=== PATIENT | female | born 1945 ===

== ENCOUNTER 2021-07-28 17:27 | Inpatient (IN) | payer MEDICARE, OTHER ==
[~2021-07-28] VITALS: Ht 182.9 cm; Wt 90.8 kg
[2021-07-28] MEDS ORDERED: AMLO5 PO (18:25)
[2021-07-28] MEDS ORDERED: CYCL10 PO (18:26)
[2021-07-28] MEDS ORDERED: Vitamin D1000 UNI1 PO (18:26)
[2021-07-28] MEDS ORDERED: LISI20 PO (18:27)
[2021-07-28] MEDS ORDERED: KETO15TC TOP (18:27)
[2021-07-28] MEDS ORDERED: FERSU300 PO (18:27)
[2021-07-28] MEDS ORDERED: PRAVASTATIN SOD40 MG PO (18:28)
[2021-07-28] MEDS ORDERED: Hair, Skin & N1 EACH PO (18:28)
[2021-07-28 20:33] LABS: Creatine Kinase MB Index 0.7 (0.0-4.0)
--- NOTE | 2021-07-29 05:00 | NUR ---
CATHETER PT IN LARGE AMOUNT OF PAIN DUE TO HIP FX. DIFFICULT TO ROLL PATIENT. CALLED [facility]. PER ER, AUGUSTIN CATH PLACED STERILELY @ 1205 ON 07/28/21. AT THIS TIME, FOR PT PAIN/REQUEST, NOT REPLACING AUGUSTIN WITH OUR OWN. UA TO BE SENT VIA [facility].
[2021-07-29 05:11] LABS: BASOPHILS ABSOLUTE AUTO 0.03 K/mm3 (0.00-0.23); BASOPHILS PERCENT AUTO 0 % (0-2); EOSINOPHILS ABSOLUTE AUTO 0.06 K/mm3 (0.00-0.68); EOSINOPHILS PERCENT AUTO 1 % (0-6); Hematocrit 41.4 % (33.0-51.0); Hemoglobin 14.1 g/dL (11.5-16.0); IMMATURE GRAN ABSOLUTE AUTO 0.07 K/mm3 (0.00-0.10); IMMATURE GRAN PERCENT AUTO 1 % (0-1); LYMPHOCYTES ABSOLUTE AUTO 1.62 K/mm3 (0.84-5.20); LYMPHOCYTES PERCENT AUTO 12 % (21-46); MONOCYTES PERCENT AUTO 7 % (4-13); Mean Corpuscular HGB Conc 34.1 g/dL (31.5-36.5); Mean Corpuscular Volume 88 fL (80-100); NEUTROPHILS ABSOLUTE AUTO 10.55 K/mm3 (1.96-9.15); NEUTROPHILS PERCENT AUTO 80 % (41-73); RDW Coefficient Variation 12.7 % (11.7-14.2); RDW Standard Deviation 41.3 fL (35.1-46.3); White Blood Cell Count 13.23 K/mm3 (4.00-11.30)
[2021-07-29 05:18] LABS: Mean Platelet Volume 11.5 fL (9.1-12.4)
[2021-07-29 05:35] LABS: Bun/Creatinine Ratio 25.7 (12.0-20.0); Calcium, Blood 7.9 mg/dL (8.5-10.1); Creatinine, Blood 0.93 mg/dL (0.40-1.00); Globulin, Blood 3.1 g/dL (2.2-4.0); Potassium, Blood 3.7 mmol/L (3.5-5.5); Total Protein, Blood 6.1 g/dL (6.4-8.2)
[2021-07-29 05:41] LABS: Source, Urine Foley catheter
--- NOTE | 2021-07-29 06:06 | NUR ---
END OF SHIFTY SUMMARY: OVERNOC WENT WELL, NO ACUTE ISSUES, VSS, 2L NC SATS (90-95%), ONLY PAIN IS WITH ACTIVITY (ADLs ETC..), LLE TURNED INWARDS AND VERY PAINFUL WITH TURNS. TROP IS TRENDING UP-- MD AWARE, NO INTERVENTIONS AT THIS TIME, AUGUSTIN CATH WITH ~300 OUT ALL SHIFT. STILL CONFUSED, ALERT TO SELF ONLY WILL CONTINUE TO MONITOR
[2021-07-29 06:39] LABS: Bilirubin, Urine Neg (Neg); Blood, Urine 5+ (Neg); Glucose Qualitative, Urine Neg (Neg); Ketones, Urine 2+ (Neg); Leukocyte Esterase, Urine 1+ (Neg); Nitrite, Urine Neg (Neg); Protein, Urine 3+ (Neg); Specific Gravity, Urine 1.025 (1.003-1.022); Urobilinogen, Urine NORM (Normal)
[2021-07-29 06:52] LABS: Platelet Count 128 K/mm3 (150-400)
[2021-07-29 07:00] LABS: Appearance, Urine Clear (Clear); Color, Urine Yellow (P-Yellow)
[2021-07-29 07:03] LABS: Red Blood Cells, Urine 50-100 /hpf (0-2); Squamous Epithelial Cells Rare /hpf (Few)
[2021-07-29 07:04] LABS: Bacteria Many /hpf; Mucus Heavy (0-Heavy)
[2021-07-29 07:05] LABS: Hyaline Casts 0-2 /lpf (0-2)
[2021-07-29] MEDS ORDERED: MELATONIN5 M1 PO (08:56)
[2021-07-29] MEDS ORDERED: APAP500 MG PO (08:56)
[2021-07-29] MEDS ORDERED: [UNRECOGNIZED DRUG - OTHER] TOP (08:58)
--- NOTE | 2021-07-29 09:42 | NUR ---
Pt agitated and combative towards staff- multiple attempts to punch, pinch, and bite staff during med administration. Attempted to utilize de-escalating techniques and offer pain management and vital signs, pt responded "Get away from me you weird people and stop touching me." notified that AM meds were not administered. Will continue to monitor.
--- NOTE | 2021-07-29 09:52 | NUR ---
Update: Attempted ECHO- pt agitated and combative, unable to complete at this time. Cardiology at bedside aware, order cancelled.
--- NOTE | 2021-07-29 11:48 | NUR ---
Case Conference Note Reviewed chart and attempted to see Pt. Pt currently receiving care from staff and will attempt to F/U at a later time. Called and spoke with Pt's friend Alysia. Alysia reports at baseline Pt is independent with her ADLs and has a caregiver come in once a week. Alysia reports that she comes to Pt's home daily and checks on her. Alysia reports over the last 6 months Pt has become more confused and forgetul. She reports Pt is [employer] and has refused to get hearing aides. Pt does better with comunicating if Pt has her glasses on to read lips. She does report Pt becomes more agitated and combative when attempts of restraining her occur. Alysia reports Pt does not have any family, except a sister in law who lives in [place] but Pt does stay in routine communication. Alysia reports Pt's shunt has not been checked since having it placed. No other concerns reported at this time. Palliative Care will remain available.
--- NOTE | 2021-07-29 17:13 | NUR ---
Update: notified of elevated BP, Clonidine patch order d/t pt refusing PO meds at this time. Pt febrile, Rvce=082.5F- PRN Tylenol offered, pt refused. Cooling measures utilized, current temp =100.1F. CBC, BC, and abx ordered. Will continue to monitor.
[2021-07-29 18:07] LABS: Hematocrit 43.9 % (33.0-51.0); Hemoglobin 14.2 g/dL (11.5-16.0); Mean Corpuscular HGB 29.6 pg (26.0-34.0); Mean Corpuscular HGB Conc 32.3 g/dL (31.5-36.5); Mean Corpuscular Volume 92 fL (80-100); Mean Platelet Volume 10.7 fL (9.1-12.4); Platelet Count 158 K/mm3 (150-400); RDW Coefficient Variation 12.8 % (11.7-14.2); RDW Standard Deviation 43.1 fL (35.1-46.3); Red Blood Cell Count 4.79 M/mm3 (3.80-5.20); White Blood Cell Count 12.95 K/mm3 (4.00-11.30)
--- NOTE | 2021-07-29 18:33 | NUR ---
Shift Summary: Pt remains A&Ox1- agitated/combative most of shift and refusing care. BP trending up, AM BP meds were refused by patient, Clonidine patch applied to SANJIV. Yntc=077.5- pt refused PRN Tylenol, cooling measures utilized with adequate control of body temp. C/o L hip pain- Fentanyl x2, adequate control of pain per pt behavior. Ativan x1 d/t pt agitation prior to CT scan. FC that was POA remains in place- per infection prevention, FC does not need to be exchanged as it was placed in a sterile setting at previous hospital. Continues to have low UO. No BM. Tolerating current diet- will need to be NPO at 00:00 for tentative L hip repair tomorrow at 11:30a. Frequent rounds to ensure pt safety. Pt repositioned q2hrs and pressure points offloaded to prevent pressure ulcers. Pt in no apparent distress at this time. Will continue to monitor until transfer of care to oncoming RN.
--- NOTE | 2021-07-30 03:36 | NUR ---
PT'S TEMP IS CURRENTLY 99.8 F TEMPORAL. PT SKIN IS HOT TO TOUCH. THIS RN ASKS PT IF SHE NEEDS SOMETHING FOR PAIN, PT IS AGREEABLE TO HAVE SOME TYLENOL WHEN SHE IS ABLE, REFUSES NORCO, STATES PAIN IS TOLERABLE. PT IS CONFUSED, THINKS SHE HAS BEEN TO A FRIEND'S HOUSE, THIS RN REORIENTS PT, PT VERBALIZES UNDERSTANDING. ASKS THIS RN HOW TO TELL WHAT IS REAL AND WHAT IS NOT. THIS RN EXPLAINS CURRENT SITUATION AND REORIENTS PT TO UNIT AND THIS RN. PT INITIALLY AGITATED BUT RESPONDS POSITIVELY TO THIS RN TAKING HER HAND, PT ADJUSTED ON PILLOWS FOR COMFORT. COUNTRY MUSIC PUT ON PER PT REQUEST. PT ASKS ABOUT BREAKFAST. THIS RN EXPLAINS NPO STATUS D/T POSSIBLE SX TODAY. PT NODS HER HEAD AND VERBALIZES UNDERSTANDING.
[2021-07-30 04:39] LABS: BASOPHILS ABSOLUTE AUTO 0.04 K/mm3 (0.00-0.23); BASOPHILS PERCENT AUTO 0 % (0-2); EOSINOPHILS ABSOLUTE AUTO 0.17 K/mm3 (0.00-0.68); EOSINOPHILS PERCENT AUTO 2 % (0-6); Hematocrit 41.3 % (33.0-51.0); Hemoglobin 13.7 g/dL (11.5-16.0); IMMATURE GRAN ABSOLUTE AUTO 0.04 K/mm3 (0.00-0.10); IMMATURE GRAN PERCENT AUTO 0 % (0-1); LYMPHOCYTES ABSOLUTE AUTO 1.48 K/mm3 (0.84-5.20); LYMPHOCYTES PERCENT AUTO 15 % (21-46); MONOCYTES ABSOLUTE AUTO 0.63 K/mm3 (0.16-1.47); MONOCYTES PERCENT AUTO 6 % (4-13); Mean Corpuscular HGB 29.7 pg (26.0-34.0); Mean Corpuscular HGB Conc 33.2 g/dL (31.5-36.5); Mean Corpuscular Volume 90 fL (80-100); NEUTROPHILS ABSOLUTE AUTO 7.42 K/mm3 (1.96-9.15); NEUTROPHILS PERCENT AUTO 76 % (41-73); Platelet Count 150 K/mm3 (150-400); RDW Coefficient Variation 12.5 % (11.7-14.2); RDW Standard Deviation 41.2 fL (35.1-46.3); Red Blood Cell Count 4.61 M/mm3 (3.80-5.20); White Blood Cell Count 9.78 K/mm3 (4.00-11.30)
[2021-07-30 05:06] LABS: Alanine Aminotransfer (ALT/SGP 43 U/L (12-78); Albumin, Blood 2.9 g/dL (3.4-5.0); Albumin/Globulin Ratio 0.9 (0.8-1.8); Alk Phos 107 U/L (50-136); Anion Gap 8 mmol/L (6-16); Aspartate Aminotrans (AST/SGOT 49 U/L (12-37); Blood Urea Nitrogen 23 mg/dL (8-24); Bun/Creatinine Ratio 25.8 (12.0-20.0); CO2, Blood 23 mmol/L (21-32); Calcium, Blood 8.1 mg/dL (8.5-10.1); Chloride, Blood 110 mmol/L (98-108); Creatinine, Blood 0.89 mg/dL (0.40-1.00); Globulin, Blood 3.2 g/dL (2.2-4.0); Glomerular Filtration Rate >60 (60-); Glucose, Blood 126 mg/dL (70-99); Potassium, Blood 3.7 mmol/L (3.5-5.5); Sodium, Blood 141 mmol/L (136-145); Total Protein, Blood 6.1 g/dL (6.4-8.2)
--- NOTE | 2021-07-30 07:30 | NUR ---
SHIFT SUMMARY PT CONFUSED, ORIENTED TO SELF, DISTRUSTFUL. PT IRRITABLE ABOUT BEING IN HOSPITAL, WANTING TO LEAVE. PT RESTED LATER INTO THE NIGHT AND HTN IMPROVED BRIEFLY. PT LESS IRRITABLE AFTER SOME REST, COOPERATIVE WHEN TAKEN OUT OF RESTRAINTS, COULD NOT CONTRACT FOR SAFETY, PLACED BACK INTO RESTRAINTS AND COOPERATIVE WITH REPLACEMENT. PT CALM AND CHEERFUL THIS AM, AGREEABLE TO MAINTAIN SAFETY AND AVOID PULLING ON LINES, TUBES. HR SENSITIVE TO LABETALOL 10 MG IV, CECELIA VISIBLE DOWN TO 58 BPM FROM HIGH 80'S.
--- NOTE | 2021-07-30 09:43 | NUR ---
CATH TO GRAVITY CLEAR AMADOR URINE
--- NOTE | 2021-07-30 10:00 | NUR ---
Pt resting in bed upon arrival. Day surgery arrives to take Pt back for surgery. Pt appears calm and no S/S of distress at this time. Spoke with Primary RN Briseida and discussed case. Pt appears to be doing better today and is no longer in restraints. Called and spoke with Pt's friend Alysia. Provided update and answered questions. Deferred question related to CT results for hospitalist to answer. Palliative Care will remain available.
--- NOTE | 2021-07-30 12:25 | NUR ---
07/30/21 1225 Sumi Little PATIENT HAD AUGUSTIN IN PLACE WHEN ENTERING OR. DRAINING YELLOW URINE.
--- NOTE | 2021-07-30 14:38 | NUR ---
Shift note: Assumed care [id number], pt was brought to surgery 929 and then transferred from PACU to surgical floor after surgery, report given to Sandy. Pt was A&Ox3 this AM, disoriented to situation. Pt was calm and cooperative this AM prior to surgery. Pt had left hip repair completed by Dr. Roth. VSS on RA prior to surgery.
--- NOTE | 2021-07-30 15:40 | NUR ---
SHIFT SUMMARY: POD 0 LEFT CHANEL HIP PATIENT CAME FROM PACU TODAY 07/30/21 AT 1430. PATIENT IS SLEEPY BUT AROUSABLE WITH TOUCH. PATIENT DENIES PAIN AT THIS TIME. LEFT HIP HAS ONE AQUACEL THAT IS C/D/I. PATIENT IS FULL WEIGHT BEARING STATUS. AUGUSTIN IS PATENT AND DRAINING PER GRAVITY. PRIOR TO SURGERY SHE WAS ALERT AND ORIENTED X3-4. VS ARE WNL AND IS ON 2L NC. IV FLUIDS ARE RUNNING AT THIS TIME. BED ALARM ON. CALL LIGHT WITHIN REACH. THE PLAN IS TO POSSIBLY GO TO SNF AFTER WORKING WITH PT/OT TOMORROW WELL TO GET PAIN MANAGED.
--- NOTE | 2021-07-31 07:22 | NUR ---
ECHO SLEPT MOST OF THE NIGHT. SHE REMAINED FREE OF RESTRAINTS, WAS COOPERATIVE AND PLEASANT WITH STAFF. AT ONE POINT, RN TITRATED PT DOWN TO ROOM AIR, BUT SHE WAS SATING AT 92%. PLACED PT BACK ON 2LPM VIA NASAL CANULA. AUGUSTIN IN PLACE. PT ADMITTED THAT SHE WAS HAVING HALLUCINATIONS AND SEEING DOGS IN HER ROOM. PT WAS ABLE TO IDENTIFY THESE HALLUCINATIONS, AND TOLD THE NURSE, "I SHOULD PROBABLY MENTION THAT I'M HALLUCINATING."
--- NOTE | 2021-07-31 19:06 | NUR ---
SHIFT SUMMARY POD1 R CHANEL HIP, ALERT AND CONFUSED/FORGETFUL BUT REORIENTS EASILY, COOPERATIVE WITH ALL NURSING CARE, DID WELL WITH THERAPY, UP TO CHAIR T/O MOST OF THE SHIFT. DENIES PAIN OTHER THAN WHILE MOVING. NO ACUTE EVENTS THIS SHIFT. CALL LIGHT IN REACH, REPORT GIVEN TO CARMEN RN.
[2021-08-01 04:05] LABS: BASOPHILS ABSOLUTE AUTO 0.04 K/mm3 (0.00-0.23); BASOPHILS PERCENT AUTO 1 % (0-2); EOSINOPHILS ABSOLUTE AUTO 0.28 K/mm3 (0.00-0.68); EOSINOPHILS PERCENT AUTO 3 % (0-6); Hematocrit 35.8 % (33.0-51.0); IMMATURE GRAN ABSOLUTE AUTO 0.05 K/mm3 (0.00-0.10); IMMATURE GRAN PERCENT AUTO 1 % (0-1); LYMPHOCYTES ABSOLUTE AUTO 1.97 K/mm3 (0.84-5.20); LYMPHOCYTES PERCENT AUTO 23 % (21-46); MONOCYTES ABSOLUTE AUTO 0.62 K/mm3 (0.16-1.47); MONOCYTES PERCENT AUTO 7 % (4-13); Mean Corpuscular HGB 29.9 pg (26.0-34.0); Mean Corpuscular HGB Conc 33.5 g/dL (31.5-36.5); Mean Corpuscular Volume 89 fL (80-100); Mean Platelet Volume 10.7 fL (9.1-12.4); NEUTROPHILS ABSOLUTE AUTO 5.57 K/mm3 (1.96-9.15); NEUTROPHILS PERCENT AUTO 65 % (41-73); Platelet Count 165 K/mm3 (150-400); RDW Coefficient Variation 12.5 % (11.7-14.2); Red Blood Cell Count 4.01 M/mm3 (3.80-5.20); White Blood Cell Count 8.53 K/mm3 (4.00-11.30)
[2021-08-01 04:24] LABS: Albumin, Blood 2.6 g/dL (3.4-5.0); Albumin/Globulin Ratio 0.8 (0.8-1.8); Bilirubin, Total 0.4 mg/dL (0.1-1.0); Bun/Creatinine Ratio 26.7 (12.0-20.0); Calcium, Blood 7.8 mg/dL (8.5-10.1); Creatinine, Blood 1.05 mg/dL (0.40-1.00); Globulin, Blood 3.1 g/dL (2.2-4.0); Potassium, Blood 3.6 mmol/L (3.5-5.5); Total Protein, Blood 5.7 g/dL (6.4-8.2)
--- NOTE | 2021-08-01 05:22 | NUR ---
SHIFT SUMMARY POD2 L CHANEL HIP WITH AQUACEL DRESSING CDI. PT DENIES ANY N/T. AMBULATES WITH 2 PERSON ASSIST FROM RECLINER TO BED. TOLEARTED IT WELL. WB SUKHI. HTN THIS AM. TOLERATING PO INTAKE. DENIES NAUSEA AND VOMITING. SALINE LOCKED. VOIDING. AUGUSTIN DC'D. PT REQUESTED SOME SNACKS THIS MORNING. PT APPEARS TO BE CONFUSED INTERMITTENTLY, CAN BE REDIRECTED EASILY. PLEASANT. REPORTS MILD PAIN. PAIN MANAGED WITH NORCO BEFORE BED. PT SLEPT GOOD OVERNIGHT. CALL LIGHT WITHIN REACH. WILL CONTINUE TO MONITOR PT. WILL PROVIDE REPORT TO ONCOMING NURSE.
--- NOTE | 2021-08-01 19:36 | NUR ---
SHIFT SUMMARY POD2 L CHANEL HIP, AQUACELL C/D/I, ALERT BUT CONFUSED/FORGETFUL, SPENT MOST OF THE DAY UP TO CHAIR, SOME INSTABILITY WHILE STANDING SO SHE IS USING 2 PERSON MODERATE ASSIST, MULTIPLE BM TODAY, VOIDING WELL BUT INTERMITTENTLY INCONTINENT OF BLADDER, PLEASANT AND COOPERATIVE c ALL NURSING CARE. NO ACUTE EVENTS TODAY, CALL LIGHT IN REACH, REPORT GIVEN TO CARMEN RN.
--- NOTE | 2021-08-01 23:00 | NUR ---
NOTIFIED PRODUCTION PLANNING MANAGER OF THIS PT'S SBP OF ON THE 180'& 190S, TELEPHONE ORDER RECEIVED BY CN TO GIVE LABETALOL 10 MG IV PRN FOR SBP ABOVE 160.
--- NOTE | 2021-08-02 04:16 | NUR ---
SHIFT SUMMARY: PT. CONFUSED AT ITMES BUT ORIENTED TO SELF & HER MEDICATIONS. B/P WENT UP TO 195/100, NOTIFIED, TELEPHONE ORDER RECEIVED TO GIVE LABETALOL 10 MG IV Q 6 HRS PRN FOR SBP ABOVE 160. SCATTERED BRUISING TO UPPER EXTREMITIES NOTED. BOWEL & BLADDER INCONTINENCE. FREQUENT ROUNDING & REPOSITIONING DONE. NO S/S OF RESP./CV DISTRESS NOTED. WILL CONTINUE TO MONITOR.
--- NOTE | 2021-08-02 04:58 | NUR ---
PT. IS AOX4, COMMUNICATING WELL THIS MORNING.
--- NOTE | 2021-08-02 16:06 | NUR ---
SHIFT SUMMARY POD3 L CHANEL HIP c AQUACELL IN PLACE, ALERT AND PLEASANTLY CONFUSED, STAND PIVOTS TO BSC AND IS DOING BETTER WITH THESE TRANSFERS, GAIT APPEARS TO BE STRONGER TODAY SHE HAS NOT HAD TO SIT BACK DOWN AFTER STANDING UP, TRANSFERS TODAY HAVE BEEN MODERATE ASSIST WITH 1 PERSON WHILE USING FWW AND GB. COGNITION IS STILL CONFUSED BUT SHE HAS NOT BEEN IMPULSIVE OR RESISTANT, FOLLOWS COMMANDS WELL AND IS PLEASANT WITH ALL NURSING INTERACTIONS/CARE. UP TO CHAIR T/O MOST OF THE SHIFT TODAY, SCD ON WHILE IN THE CHAIR. DENIES PAIN, TOLERATING DIET. NO ACUTE EVENTS THIS SHIFT, WILL CTM AND REPORT TO ONCOMING RN.
--- NOTE | 2021-08-02 16:39 | NUR ---
CALLED DR KAUFFMAN FOR BP CONCERN, RECEIVED AN ORDER TO GIVE THE NIGHT DOSE OF NORVASC NOW. NO DR ORDER OF TELE AT THIS TIME.
--- NOTE | 2021-08-03 03:30 | NUR ---
SHIFT SUMMARY: PT. WAS CONFUSED WITH HER ACTUAL LOCATION & DID NOT KNOW WHAT HAPPENED TO HER WHEN ASKED DURING ROUNDS AT THE BEGINNING OF THE SHIFT. REORIENTED & PT. WAS THEN ABLE TO REMEMBER. OFFERED WATER SEVERAL TIMES WHICH PT. DRANK WELL. L HIP INCISION WITH AQUACEL C/D/I. ABLE TO TRANSFER FROM CHAIR TO BED WITH WALKER & GAITBELT X 1-2 PERSONS ASSIST. B/P MONITORED PRN & LABETALOL IV 10 MG GIVEN PER MD ORDER, SEE EMAR. NO COMPLAINTS OF PAIN. ABLE TO HELP TO TURN TO SIDES. BOWEL & BLADDER INCONTINENCE, ATTENDS PLACED. ROUNDING & TURNING PER PROTOCOL THEN PRN.NO ACUTE CHANGES NOTED.
[2021-08-03 04:17] LABS: BASOPHILS ABSOLUTE AUTO 0.04 K/mm3 (0.00-0.23); BASOPHILS PERCENT AUTO 1 % (0-2); EOSINOPHILS ABSOLUTE AUTO 0.36 K/mm3 (0.00-0.68); EOSINOPHILS PERCENT AUTO 4 % (0-6); Hematocrit 37.4 % (33.0-51.0); Hemoglobin 12.5 g/dL (11.5-16.0); IMMATURE GRAN ABSOLUTE AUTO 0.07 K/mm3 (0.00-0.10); IMMATURE GRAN PERCENT AUTO 1 % (0-1); LYMPHOCYTES ABSOLUTE AUTO 1.75 K/mm3 (0.84-5.20); LYMPHOCYTES PERCENT AUTO 21 % (21-46); MONOCYTES ABSOLUTE AUTO 0.67 K/mm3 (0.16-1.47); MONOCYTES PERCENT AUTO 8 % (4-13); Mean Corpuscular HGB 29.6 pg (26.0-34.0); Mean Corpuscular HGB Conc 33.4 g/dL (31.5-36.5); Mean Corpuscular Volume 89 fL (80-100); Mean Platelet Volume 10.6 fL (9.1-12.4); NEUTROPHILS ABSOLUTE AUTO 5.46 K/mm3 (1.96-9.15); NEUTROPHILS PERCENT AUTO 65 % (41-73); Platelet Count 193 K/mm3 (150-400); RDW Coefficient Variation 12.7 % (11.7-14.2); RDW Standard Deviation 41.1 fL (35.1-46.3); Red Blood Cell Count 4.22 M/mm3 (3.80-5.20); White Blood Cell Count 8.35 K/mm3 (4.00-11.30)
[2021-08-03 04:27] LABS: Anion Gap 7 mmol/L (6-16); Blood Urea Nitrogen 18 mg/dL (8-24); Bun/Creatinine Ratio 20.2 (12.0-20.0); CO2, Blood 25 mmol/L (21-32); Calcium, Blood 8.2 mg/dL (8.5-10.1); Chloride, Blood 108 mmol/L (98-108); Creatinine, Blood 0.89 mg/dL (0.40-1.00); Glomerular Filtration Rate >60 (60-); Glucose, Blood 157 mg/dL (70-99); Potassium, Blood 3.5 mmol/L (3.5-5.5); Sodium, Blood 140 mmol/L (136-145)
--- NOTE | 2021-08-03 16:48 | NUR ---
SHIFT SUMMARY PT A&OX3, VSS/RA. POD4 L CHANEL HIP, AQUACEL CDI, WBAT. AMB W/FWW & GB, 1 PP MOD ASSIST. UP TO CHAIR T/O SHIFT. VOIDING/ATTENDS ON, BM TODAY, USES BSC. PAIN MANAGED WITH TYLENOL. SUKHI PO REG DIET. WILL REPORT TO ONCOMING NOC TIM.
--- NOTE | 2021-08-04 02:11 | NUR ---
SHIFT SUMMARY: PT. AOX3, DENIES PAIN, ABLE TO TRANSFER FROM CHAIR TO BED WITH WALKER & GB X 1 PERSON ASSIST. ABLE TO MAKE NEEDS KNOWN BY USING A CALL LIGHT. HAD A LARGE BM. INCONTINENT WITH BLADDER AT TIMES, ATTENDS PLACED. NO ACUTE CHANGES NOTED. ROUNDING PER PROTOCOL. WILL CONTINUE TO MONITOR.
--- NOTE | 2021-08-04 14:43 | NUR ---
SHIFT SUMMARY PT A&OX3, VSS/RA, POD5 L CHANEL HIP, AQUACEL D/I, WBAT. PAIN MANAGED W/TYLENOL. AMB W/FWW & GB, 1 PP MIN ASSIST, TO BRP/CHAIR/DOOR/WINDOW IN ROOM. VOIDING WELL, ATTENDS ON FOR LEAKING, BM TODAY. SUKHI PO REG DIET. WILL REPORT TO ONCOMING NOC RN.
--- NOTE | 2021-08-05 04:10 | NUR ---
SHIFT SUMMARY: PT. IS AOX3, FOLLOWS COMMAND,ABLE TO MAKE NEEDS KNOWN, USES CALL LIGHT. INTERMITTENT INCONTINENCE WITH BLADDER. BED ALARM ON PT. WAS NOTED SITIITNG AT THE EDGE OF THE BED THE PAST NIGHT WHEN SHE WAS CONFUSED. NO COMPLAINTS OF RIGO, REFUSED PAIN MEDICINE & STOOL SOFTENERS. NO ACUTE CHANGES NOTED, WILL CONTINUE TO MONITOR.
[2021-08-05 11:37] LABS: Influenza A, PCR NEGATIVE (NEGATIVE); Influenza B, PCR NEGATIVE (NEGATIVE); Resp Syncytial Virus, PCR NEGATIVE (NEGATIVE); SARS-Cov-2 (COVID-19) PCR, MMC NEGATIVE (NEGATIVE)
--- NOTE | 2021-08-05 12:15 | NUR ---
REPORT CALL[facility] TO [facility] DUMONT AT [facility].
--- NOTE | 2021-08-05 13:37 | NUR ---
PATIENT DISCHARGED TO [facility], VIA [facility]. BELONGINGS SENT WITH PATIENT AND PAPERWORK WITH TRANSPORT PERSONELL. DENIES PAIN, TRANSFER TO W/C WITH ONE ASSIST, GAIT BELT AND FWW.
== END 2021-08-05 13:30 | DRG 521 ==
LOC: PCU 17:27 → SURS 17:30 → PCU 17:30 → SURS 07-30 14:31
PROVIDERS: Family Medicine; Internal Medicine; Orthopaedic Surgery; ADMIT Internal Medicine
PROC: 0SRS0J9 Replacement of Left Hip Joint, Femoral Surface with Synthetic Substitute, Cemented, Open Approach (ICD-10-PCS; principal; 2021-07-30 10:00)
DX: M80.852A Other osteoporosis with current pathological fracture, left femur, initial encounter for fracture (principal); I21.4 Non-ST elevation (NSTEMI) myocardial infarction; G92.8 Other toxic encephalopathy; M62.82 Rhabdomyolysis; G91.9 Hydrocephalus, unspecified; Z66 Do not resuscitate; E86.0 Dehydration; I16.0 Hypertensive urgency; N18.30 Chronic kidney disease, stage 3 unspecified; E88.81 Metabolic syndrome and other insulin resistance; E78.2 Mixed hyperlipidemia; F48.2 Pseudobulbar affect; R73.03 Prediabetes; F03.90 Unspecified dementia, unspecified severity, without behavioral disturbance, psychotic disturbance, mood disturbance, and anxiety; Z28.21 Immunization not carried out because of patient refusal; I12.9 Hypertensive chronic kidney disease with stage 1 through stage 4 chronic kidney disease, or unspecified chronic kidney disease; M54.9 Dorsalgia, unspecified; G89.29 Other chronic pain; Z96.641 Presence of right artificial hip joint; Z96.652 Presence of left artificial knee joint; Z98.2 Presence of cerebrospinal fluid drainage device; Z90.49 Acquired absence of other specified parts of digestive tract; Z79.899 Other long term (current) drug therapy; Z88.8 Allergy status to other drugs, medicaments and biological substances; Z98.890 Other specified postprocedural states; W18.30XA Fall on same level, unspecified, initial encounter
CPT/HCPCS: 0241U; 36415; 70450; 73502; 80048; 80053; 81001; 82550; 82553; 84484; 85025; 85027; 87040; 87086; 88305; 88311; 93005; 93010; 97110; 97116; 97162; 97530; A9270; C1713; C1776; J0171; J0690; J0696; J0735; J1100; J1885; J2060; J2250; J2370; J2405; J2704; J2795; J3010; J7030; J7120